=== PATIENT | female | born 1970 | race African-American/Black ===

== ENCOUNTER 2022-02-01 14:22 | Emergency (ER) | payer MEDICAID ==
[~2022-02-01] VITALS: Ht 172.7 cm; Wt 66.0 kg
[2022-02-01] MEDS ORDERED: KETOROLAC 60MG/2ML VIAL IM ONE (15:00)
[2022-02-01] MEDS ORDERED: IBUP-2029 MT ×2 (15:29→19:27)
[2022-02-01] MEDS ORDERED: TOPUD MT (15:29)
[2022-02-01 15:51] VITALS: BP 109/73
[2022-02-01] MEDS ORDERED: T3 PO (19:27)
== END 2022-02-01 15:55 | disposition home or self-care (01) ==
LOC: ER 14:55
DX: M54.50 Low back pain, unspecified (principal); Z88.5 Allergy status to narcotic agent; Z98.890 Other specified postprocedural states
CPT/HCPCS: 72100; 96372; 99283; J1885

== ENCOUNTER 2022-02-01 17:14 | Emergency (ER) | payer MEDICAID ==
[~2022-02-01] VITALS: Ht 170.2 cm; Wt 66.0 kg
[~2022-02-01 17:14] MED LIST: IBUP-2029 MT; TOPUD MT
[2022-02-01 17:29] VITALS: BP 136/89
[2022-02-01] MEDS ORDERED: ACETAMINOPHEN 325MG TABLET PO ONE (18:45)
[2022-02-01] MEDS ORDERED: IBUP-2029 MT (19:27)
[2022-02-01] MEDS ORDERED: T3 PO (19:27)
== END 2022-02-01 20:45 | disposition home or self-care (01) ==
LOC: ER 17:24
DX: S32.009A Unspecified fracture of unspecified lumbar vertebra, initial encounter for closed fracture (principal); Z88.5 Allergy status to narcotic agent; Z98.890 Other specified postprocedural states; Y04.0XXA Assault by unarmed brawl or fight, initial encounter; Y93.89 Activity, other specified; Y92.89 Other specified places as the place of occurrence of the external cause; Y99.8 Other external cause status
CPT/HCPCS: 72131; 99284